=== PATIENT | female | born 1950 | race Caucasian/White ===

== ENCOUNTER 2016-11-25 15:12 | Emergency (ER) | payer OTHER ==
[~2016-11-25] VITALS: Ht 160 cm; Wt 95.8 kg
[2016-11-25 15:36] LABS: ADD MIUA? YES; BILIRUBIN NEGATIVE; BLOOD SMALL; COLOR YELLOW ((YELLOW)); GLUCOSE (STRIP) NEGATIVE; KETONES 20; LEUKOCYTES NEGATIVE; NITRITE NEGATIVE; PROTEIN (STRIP) NEGATIVE; SPECIFIC GRAVITY 1.025 (1.000-1.030); UROBILINOGEN 0.2 MG/DL (0.2-1.0)
[2016-11-25 15:40] LABS: BACTERIA NONE SEEN /HPF; EPITHELIAL CELLS RARE /HPF; MUCUS TRACE /LPF; UCUL ADDED? NO; UNCLASSIFIED CRYSTALS 1+ /HPF; WHITE BLOOD CELLS 0-5 /HPF (0-5)
[2016-11-25 16:05] LABS: HEMATOCRIT 38.6 % (36.0-46.0); MCHC 32.9 G/DL (30.0-36.0); MCV 97.2 FL (83-99); MEAN PLAT.VOLUME 10.7 uM^3 (9.5-12.4); PLATELET COUNT 371 K/uL (156-360); RBC DIS.WIDTH-CV 12.7 % (11.8-14.6); RBC DIS.WIDTH-SD 45.8 % (39-53); RED BLOOD COUNT 3.97 M/uL (3.80-5.20)
[2016-11-25 16:14] LABS: CHLORIDE 107 mEq/L (99-109); POTASSIUM 4.6 mEq/L (3.7-5.4); SODIUM 141 mEq/L (136-147)
[2016-11-25 16:16] LABS: GLUCOSE 112 mg/dL (70-99)
[2016-11-25 16:17] LABS: ANION GAP 12 MEQ/L (2-14)
[2016-11-25 16:18] LABS: TOTAL BILIRUBIN 0.5 mg/dL (0.0-1.0)
[2016-11-25 16:20] LABS: ALKALINE PHOSPHATASE 85 IU/L (3-129); GFR ESTIMATE (CALCULATED) 34 mL/min/
[2016-11-25 16:21] LABS: UREA NITROGEN (BUN) 15 mg/dL (9-23)
[2016-11-25 16:44] LABS: LIPASE 9 U/L (1.0-51.0)
[2016-11-25 16:51] LABS: TROP-I INTERPRETATION NEGATIVE; TROPONIN-I < 0.01 ng/mL (0.0-0.30)
[2016-11-25] MEDS ORDERED: ZOFRAN ODT4 MG PO (17:53)
[2016-11-25] MEDS ORDERED: FLOMAX0.4 MG PO (17:53)
[2016-11-25] MEDS ORDERED: ULTRAM50 MG PO (17:53)
[2016-11-25 18:21] VITALS: BP 140/87
== END 2016-11-25 18:44 | disposition home or self-care (01) ==
LOC: EME 15:12
DX: N20.0 Calculus of kidney (principal); R07.89 Other chest pain; I10 Essential (primary) hypertension; Z87.891 Personal history of nicotine dependence
CPT/HCPCS: 71020; 74176; 80053; 81003; 83690; 84484; 85027; 93005; 99281; 99285; J1885; J2405; J7030